=== PATIENT | female | born 1985 | race Caucasian/White ===

== ENCOUNTER 2017-04-09 08:06 | Emergency (ER) | payer MEDICAID, OTHER ==
[~2017-04-09] VITALS: Ht 152.4 cm; Wt 48.5 kg
[~2017-04-09 08:06] MED LIST: Proair; ZOLOFT
[2017-04-09 08:13] VITALS: BP_SYST 123
[2017-04-09] MEDS ORDERED: NACL 0.9% 1,000 ML IV ONE (08:45)
[2017-04-09] MEDS ORDERED: ONDANSETRON HCL 4 MG/2 ML VIAL IVP ONE (08:45)
[2017-04-09] MEDS ORDERED: KETOROLAC TROMETHAMINE 30 MG VIAL IVP ONE (08:45)
[2017-04-09 09:38] LABS: BASOPHILS % (AUTO) 0.7 % (0.0-2.0); EOSINOPHILS # (AUTO) 0.1 K/uL (0.0-0.4); EOSINOPHILS % (AUTO) 1.1 % (0.0-4.0); HEMATOCRIT 34.4 % (36-48); HEMOGLOBIN 11.2 g/dL (12.0-16.0); LYMPHOCYTES # (AUTO) 1.7 K/uL (1.0-5.5); LYMPHOCYTES % (AUTO) 26.7 % (20.5-51.5); MEAN CORPUSCULAR HEMOGLOBIN 28 pg (27-31); MEAN CORPUSCULAR HGB CONC 33 % (32-36); MEAN CORPUSCULAR VOLUME 86 fL (79.0-98.0); MONOCYTES # (AUTO) 0.4 K/uL (0.0-1.0); MONOCYTES % (AUTO) 6.1 % (1.7-9.3); NEUTROPHILS % (AUTO) 65.4 % (40.0-70.0); PLATELET COUNT (AUTO) 401 K/uL (130-430); RED CELL DISTRIBUTION WIDTH 13.6 % (9.0-15.0); WHITE BLOOD COUNT (AUTO) 6.2 K/uL (4.8-10.8)
[2017-04-09 09:39] LABS: CALCIUM 8.9 mg/dL (8.4-11.0); CREATININE 0.66 mg/dL (0.55-1.30); POTASSIUM 3.8 mmol/L (3.5-5.1)
[2017-04-09 09:43] LABS: ALBUMIN 4.3 g/dL (3.4-4.8); TOTAL BILIRUBIN 0.3 mg/dL (0.0-1.0)
[2017-04-09] MEDS ORDERED: MORPHINE 2 MG/ML INJ. SYRINGE IVP ONE (10:15)
[2017-04-09 11:04] VITALS: BP_SYST 114
== END 2017-04-09 11:04 | disposition home or self-care (01) ==
LOC: SED 08:06
DX: K52.9 Noninfective gastroenteritis and colitis, unspecified (principal); R03.0 Elevated blood-pressure reading, without diagnosis of hypertension; J45.909 Unspecified asthma, uncomplicated
CPT/HCPCS: 36415; 74176; 80053; 81025; 83690; 85025; 85610; 85730; 87040; 96361; 96374; 96375; 99285; J1885; J2270; J2405; J7030

== ENCOUNTER 2017-05-01 09:22 | Inpatient (IN) | payer MEDICAID ==
[~2017-05-01] VITALS: Ht 152.4 cm; Wt 45.4 kg
[2017-05-01 09:33] VITALS: BP_SYST 129
[2017-05-01] MEDS ORDERED: NACL 0.9% 1,000 ML IV ONE (10:33)
[2017-05-01] MEDS ORDERED: ONDANSETRON HCL 4 MG/2 ML VIAL IVP ONE (10:45)
[2017-05-01] MEDS ORDERED: MORPHINE 2 MG/ML INJ. SYRINGE IVP ONE ×2 (10:45→11:45)
[2017-05-01 10:48] LABS: BILIRUBIN,URINE NEGATIVE (NEGATIVE); BLOOD, URINE TRACE (NEGATIVE); CLARITY/URINE SL HAZY (CLEAR); COLOR,URINE YELLOW (YELLOW); GLUCOSE,URINE NEGATIVE (NEGATIVE); KETONES,URINE NEGATIVE (NEGATIVE); LEUKOCYTE ESTERASE ,URINE NEGATIVE (NEGATIVE); NITRITE, URINE NEGATIVE (NEGATIVE); PROTEIN URINE TRACE (NEGATIVE); UROBILINOGEN,URINE 0.2 (0.2-1.0)
[2017-05-01 10:53] LABS: BACTERIA,URINE FEW /HPF (None Seen); RBC,URINE 0-3 /HPF (0-3); WBC,URINE NONE SEEN /HPF (0-3)
[2017-05-01 10:54] LABS: MUCUS,URINE None Seen /LPF (None Seen)
[2017-05-01 11:00] LABS: BASOPHILS % (AUTO) 0.2 % (0.0-2.0); HEMOGLOBIN 10.3 g/dL (12.0-16.0); LYMPHOCYTES # (AUTO) 2.2 K/uL (1.0-5.5); LYMPHOCYTES % (AUTO) 17.7 % (20.5-51.5); MEAN CORPUSCULAR HEMOGLOBIN 27 pg (27-31); MEAN CORPUSCULAR HGB CONC 32 % (32-36); MEAN CORPUSCULAR VOLUME 85 fL (79.0-98.0); MONOCYTES # (AUTO) 0.8 K/uL (0.0-1.0); MONOCYTES % (AUTO) 6.3 % (1.7-9.3); NEUTROPHILS # (AUTO) 9.7 K/uL (1.8-7.7); NEUTROPHILS % (AUTO) 75.8 % (40.0-70.0); PLATELET COUNT (AUTO) 438 K/uL (130-430); RED BLOOD CELL COUNT(AUTO) 3.76 MIL/uL (4.2-6.2); RED CELL DISTRIBUTION WIDTH 12.9 % (9.0-15.0); WHITE BLOOD COUNT (AUTO) 12.7 K/uL (4.8-10.8)
[2017-05-01 11:08] LABS: CALCIUM 9.8 mg/dL (8.4-11.0); CREATININE 0.5 mg/dL (0.55-1.30); POTASSIUM 3.4 mmol/L (3.5-5.1)
[2017-05-01 11:11] LABS: INR 1.1 (0.8-1.2); PROTHROMBIN TIME 10.8 SECS (9.5-12.5)
[2017-05-01 11:12] LABS: ALBUMIN 4.1 g/dL (3.4-4.8); TOTAL BILIRUBIN 0.3 mg/dL (0.0-1.0)
[2017-05-01] MEDS ORDERED: MONT10TA25 PO (11:50)
[2017-05-01] MEDS ORDERED: ALBU8.5H8 INH (11:50)
[2017-05-01] MEDS ORDERED: DICY10CA59 PO (11:50)
[2017-05-01] MEDS ORDERED: HYDR-1189 PO (11:50)
[2017-05-01] MEDS ORDERED: DOCU-144 PO (11:50)
[2017-05-01] MEDS ORDERED: FAMO20TA98 PO (11:50)
[2017-05-01] MEDS ORDERED: OMEP20TA20 PO (11:50)
[2017-05-01 13:09] VITALS: BP_SYST 97
[2017-05-01 13:30] VITALS: BP_SYST 97
[2017-05-01] MEDS: ONDANSETRON HCL 4 MG/2 ML VIAL IVP PRN ×2 (13:50→17:54)
[2017-05-01] MEDS: MORPHINE 2 MG/ML INJ. SYRINGE IVP PRN ×3 (13:50→21:58)
[2017-05-01] MEDS: D5NS 1,000 ML IV SCH (14:47)
[2017-05-01 18:02] VITALS: BP_SYST 109
[2017-05-01 20:00] VITALS: BP_SYST 103
[2017-05-02] MEDS: MORPHINE 2 MG/ML INJ. SYRINGE IVP PRN ×6 (02:16→23:12)
[2017-05-02] MEDS: ONDANSETRON HCL 4 MG/2 ML VIAL IVP PRN ×6 (02:16→23:12)
[2017-05-02] MEDS: D5NS 1,000 ML IV SCH ×2 (04:03→18:12)
[2017-05-02 06:00] VITALS: BP_SYST 122
[2017-05-02 06:19] LABS: BASOPHILS % (AUTO) 0.7 % (0.0-2.0); EOSINOPHILS % (AUTO) 0.7 % (0.0-4.0); HEMATOCRIT 27.6 % (36-48); HEMOGLOBIN 8.8 g/dL (12.0-16.0); LYMPHOCYTES # (AUTO) 2.4 K/uL (1.0-5.5); LYMPHOCYTES % (AUTO) 35.1 % (20.5-51.5); MEAN CORPUSCULAR HEMOGLOBIN 27 pg (27-31); MEAN CORPUSCULAR HGB CONC 32 % (32-36); MEAN CORPUSCULAR VOLUME 85 fL (79.0-98.0); MONOCYTES # (AUTO) 0.5 K/uL (0.0-1.0); NEUTROPHILS # (AUTO) 3.9 K/uL (1.8-7.7); NEUTROPHILS % (AUTO) 55.5 % (40.0-70.0); PLATELET COUNT (AUTO) 315 K/uL (130-430); RED BLOOD CELL COUNT(AUTO) 3.23 MIL/uL (4.2-6.2); RED CELL DISTRIBUTION WIDTH 13.1 % (9.0-15.0); WHITE BLOOD COUNT (AUTO) 6.8 K/uL (4.8-10.8)
[2017-05-02 06:35] LABS: CALCIUM 8.9 mg/dL (8.4-11.0); CREATININE 0.5 mg/dL (0.55-1.30); POTASSIUM 3.5 mmol/L (3.5-5.1)
[2017-05-02 09:01] VITALS: BP_SYST 115
[2017-05-02] MEDS ORDERED: NACL 0.9% 1,000 ML IV SCH (10:48)
[2017-05-02] MEDS ORDERED: ACETAMINOPHEN 325 MG TABLET PO PRN (11:00)
[2017-05-02] MEDS ORDERED: ONDANSETRON HCL 4 MG/2 ML VIAL IVP PRN (11:00)
[2017-05-02] MEDS ORDERED: MORPHINE 2 MG/ML INJ. SYRINGE IVP PRN (11:00)
[2017-05-02 11:45] LABS: ALBUMIN 3.3 g/dL (3.4-4.8); CALCIUM 8.9 mg/dL (8.4-11.0); CREATININE 0.48 mg/dL (0.55-1.30); FREE T4 (FREE THYROXINE) 0.9 ng/dL (0.6-1.6); PHOSPHORUS 3.4 mg/dL (2.7-4.5); POTASSIUM 3.7 mmol/L (3.5-5.1); THYROID STIMULATING HORMONE 0.47 uIu/mL (0.34-4.82); TOTAL BILIRUBIN 0.2 mg/dL (0.0-1.0)
[2017-05-02 12:14] VITALS: BP_SYST 110
[2017-05-02 17:03] VITALS: BP_SYST 102
[2017-05-02 20:00] VITALS: BP_SYST 113
[2017-05-02] MEDS: DOCUSATE SODIUM 100 MG CAPSULE PO SCH (21:56)
[2017-05-03 00:20] VITALS: BP_SYST 90
[2017-05-03 04:32] VITALS: BP_SYST 96
[2017-05-03] MEDS: D5NS 1,000 ML IV SCH (04:39)
[2017-05-03] MEDS: ONDANSETRON HCL 4 MG/2 ML VIAL IVP PRN ×2 (04:39→09:20)
[2017-05-03] MEDS: MORPHINE 2 MG/ML INJ. SYRINGE IVP PRN ×2 (04:40→09:20)
[2017-05-03 06:21] LABS: HEMOGLOBIN A1C 5.2 % (4.8-5.6)
[2017-05-03 07:07] LABS: CALCIUM 8.8 mg/dL (8.4-11.0); CREATININE 0.55 mg/dL (0.55-1.30); POTASSIUM 3.9 mmol/L (3.5-5.1)
[2017-05-03] MEDS ORDERED: IBUP-1480 PO (07:12)
[2017-05-03 07:20] LABS: BASOPHILS % (AUTO) 0.6 % (0.0-2.0); EOSINOPHILS # (AUTO) 0.1 K/uL (0.0-0.4); EOSINOPHILS % (AUTO) 1.3 % (0.0-4.0); HEMATOCRIT 27.8 % (36-48); HEMOGLOBIN 8.7 g/dL (12.0-16.0); LYMPHOCYTES # (AUTO) 1.6 K/uL (1.0-5.5); LYMPHOCYTES % (AUTO) 25.1 % (20.5-51.5); MEAN CORPUSCULAR HEMOGLOBIN 27 pg (27-31); MEAN CORPUSCULAR HGB CONC 31 % (32-36); MEAN CORPUSCULAR VOLUME 86 fL (79.0-98.0); MONOCYTES # (AUTO) 0.5 K/uL (0.0-1.0); MONOCYTES % (AUTO) 7.3 % (1.7-9.3); NEUTROPHILS # (AUTO) 4.1 K/uL (1.8-7.7); NEUTROPHILS % (AUTO) 65.7 % (40.0-70.0); PLATELET COUNT (AUTO) 302 K/uL (130-430); RED BLOOD CELL COUNT(AUTO) 3.25 MIL/uL (4.2-6.2); RED CELL DISTRIBUTION WIDTH 12.7 % (9.0-15.0); WHITE BLOOD COUNT (AUTO) 6.3 K/uL (4.8-10.8)
[2017-05-03] MEDS ORDERED: ONDA4TAB5 PO (07:43)
[2017-05-03 08:38] LABS: T4 (THYROXINE) 6.4 ug/dL (4.5-12.0)
[2017-05-03] MEDS ORDERED: ALBUTEROL MDI INHALATION 8 GM INH INH SCH (09:00)
[2017-05-03 09:02] VITALS: BP_SYST 103
[2017-05-03] MEDS: DOCUSATE SODIUM 100 MG CAPSULE PO SCH (09:20)
[2017-05-03 11:05] VITALS: BP_SYST 103
== END 2017-05-03 11:30 | disposition home or self-care (01) | DRG 532 ==
LOC: SED 09:22 → SMU 12:39
PROVIDERS: ADMIT General Practice; ATTEND General Practice
DX: N83.202 Unspecified ovarian cyst, left side (principal); N17.0 Acute kidney failure with tubular necrosis; J45.909 Unspecified asthma, uncomplicated; N88.8 Other specified noninflammatory disorders of cervix uteri; K52.9 Noninfective gastroenteritis and colitis, unspecified; K57.90 Diverticulosis of intestine, part unspecified, without perforation or abscess without bleeding; K21.9 Gastro-esophageal reflux disease without esophagitis; Z87.891 Personal history of nicotine dependence; Z91.041 Radiographic dye allergy status
CPT/HCPCS: 36415; 71020-TC; 76830-TC; 76857; 80048; 80053; 80061; 81000-TC; 82150-TC; 83036; 83690-TC; 83735-TC; 83880; 84100-TC; 84436; 84439; 84443-TC; 84479; 85025; 85610-TC; 85730-TC; 96374; 96375; 99285; J2270; J2405; J7030; J7042